=== PATIENT | male | born 1995 | race African-American/Black ===

== ENCOUNTER 2016-10-16 14:04 | Emergency (ER) | payer MEDICAID ==
[~2016-10-16] VITALS: Ht 170.2 cm; Wt 80.0 kg
[2016-10-16 14:06] VITALS: BP 135/63; PULSE 77; RESP 20; TEMP 98.6; O2SAT 98
--- NOTE | 2016-10-16 14:12 | PD ---
Physical Exam Date Seen by Provider: October 16, 2016 Time Seen by Provider: 14:10 Narrative 21 year old male presents to the emergency department for evaluation of right ankle injury. He fell, twisting his right ankle last night playing football. He has worse pain today. Patient is ambulatory in triage. Vital signs reviewed. Patient awaiting bed placement. Data Data Last Documented VS Vital Signs Date Time Temp Pulse Resp B/P Pulse Ox O2 Delivery O2 Flow Rate FiO2 10/16/16 14:06 98.6 77 20 135/63 98 Room Air [facility] Supervised Visit with YAQUELIN: Deirdre Waggoner October 16, 2016 14:11
--- NOTE | 2016-10-16 14:35 | PD ---
HPI Chief Complaint: Injury Time Seen by Provider: 14:35 Travel History International Travel<30 days: No Contact w/Intl Traveler<30days: No Traveled to known affect area: No History of Present Illness HPI 21-year-old male presents to emergency department complaining of right ankle pain since last night after rolling his ankle while playing football. Denies paresthesias, loss of sensation to the affected extremity. Has been ambulatory in the affected extremity. Has not taken any medications or tried any treatments relieve the symptoms. No known allergies. Has no other medical complaints. No other modifying factors or associated signs and symptoms. PFSH Social History Tobacco Use: No Allergies-Medications (Allergen,Severity, Reaction): Coded Allergies: No Known Allergies (Unverified , 10/16/16) Reported Meds & Prescriptions Reported Meds & Active Scripts Active Ibuprofen 800 Mg Tab 800 Mg PO Q6HR PRN Review of Systems Except as stated in HPI: all other systems reviewed are Neg Physical Exam Narrative GENERAL: Well-nourished, well-developed male patient, in no acute distress SKIN: Warm and dry. HEAD: Atraumatic. Normocephalic. EYES: Pupils equal and round. No scleral icterus. No injection or drainage. ENT: Mucosa pink and moist. Airway patent. NECK: Trachea midline. CARDIOVASCULAR: Regular rate. RESPIRATORY: No accessory muscle use. GASTROINTESTINAL: Flat. MUSCULOSKELETAL: Right ankle is mildly edematous without erythema or ecchymosis ; no obvious deformity; with point tenderness on palpation to the lateral malleolar zone and mid foot zone. No obvious deformities. No clubbing. No cyanosis. No edema. NEUROLOGICAL: Awake and alert. Oriented 3. No obvious cranial nerve deficits. Motor grossly within normal limits. Normal speech. PSYCHIATRIC: Appropriate mood and affect; insight and judgment normal. Data Data Last Documented VS Vital Signs Date Time Temp Pulse Resp B/P Pulse Ox O2 Delivery O2 Flow Rate FiO2 10/16/16 14:06 98.6 77 20 135/63 98 Room Air Orders Ankle, Complete ([id number]) (10/16/16 14:33) Ice/Cold Pack (10/16/16 14:33) Ibuprofen (Motrin) (10/16/16 14:45) MDM Medical Decision Making Medical Screen Exam Complete: Yes Emergency Medical Condition: Yes Medical Record Reviewed: Yes Differential Diagnosis Ankle sprain, ankle fracture, ankle dislocation Narrative Course 21-year-old male with right ankle injury. Ibuprofen administered in the ER. Ice pack applied. Right ankle x-ray ordered. 1520: Right ankle x-ray with no acute findings. Javed bandage, ankle stirrup splint and crutches provided for support. Ibuprofen prescribed for home. Patient verbalizes understanding and agreement with treatment plan. Patient is medically cleared and stable for discharge. Discussed reasons to return to the emergency department. Instructed patient to follow up with primary care provider. Patient agrees with treatment plan. The patients vital signs are stable and the patient is stable for outpatient follow-up and treatment. Patient discharged home, stable and in no acute distress. Diagnosis Primary Impression: Right ankle sprain Qualified Code: S93.401A - Sprain of right ankle, unspecified ligament, initial encounter Referrals: Primary Care Physician Patient Instructions: Ankle Sprain (ED), Ankle Sprain Exercises (GEN), Ankle Stirrup Splint (ED), Crutch Instructions (ED), General Instructions Departure Forms: Tests/Procedures, Work Release Enter return to work date: October 21, 2016 Additional Instructions: Tylenol and ibuprofen as directed nausea for pain and inflammation Rest, ice, compress, and elevate extremity to decrease pain and inflammation Ankle Brace for support Crutches for support Avoid aggravating activity; increase activity as tolerated Follow-up with primary care provider Return to the emergency department immediately with worsening symptom Med/Other Pt SpecificInfo: Prescription(s) given Scripts Ibuprofen 800 Mg [id number] Mg PO Q6HR PRN (PAIN) #30 TAB Ref 0 Prov:Patricia Modi 10/16/16 Disposition: 01 DISCHARGE HOME Condition: Stable Patricia Modi October 16, 2016 14:35
[2016-10-16] MEDS ORDERED: IBUPROFEN 800 MG TAB PO ONE (14:45)
[2016-10-16] MEDS ORDERED: IBUP800T23 PO (15:06)
--- NOTE | 2016-10-16 15:14 | RADRPT ---
EXAM DATE/TIME: 10/16/2016 15:11 [place] COMPARISON: No previous studies available for comparison. INDICATIONS : Right ankle pain post football injury yesterday. MEDICAL HISTORY : None. SURGICAL HISTORY : None. ENCOUNTER: Initial ACUITY: 2 days PAIN SCORE: 8/10 LOCATION: Right anterior ankle FINDINGS: Three view exam was performed of the right ankle. The bony structures are in normal alignment. No e vidence of fracture, dislocation, or soft tissue swelling. The ankle mortise is intact. No radiopaq ue foreign bodies are seen. Bony mineralization is normal. CONCLUSION: No acute fracture. Iron Vizcaino MD on October 16, 2016 at 15:12 Board Certified Radiologist. This report was verified electronically.
== END 2016-10-16 15:39 | disposition home or self-care (01) ==
LOC: NEPK 14:04
DX: S93.401A Sprain of unspecified ligament of right ankle, initial encounter (principal); X50.9XXA Other and unspecified overexertion or strenuous movements or postures, initial encounter; Y93.61 Activity, american tackle football
CPT/HCPCS: 73610; 99283; E0113; L1906

== ENCOUNTER 2017-05-31 08:37 | Emergency (ER) | payer MEDICAID ==
[~2017-05-31 08:37] MED LIST: ZOFR4TAB3 SL
[2017-05-31 08:39] VITALS: BP 142/93; PULSE 69; RESP 16; TEMP 97.8; O2SAT 98
--- NOTE | 2017-05-31 08:55 | PD ---
HPI Chief Complaint: ENT Complaint Time Seen by Provider: 08:43 Travel History International Travel<30 days: No Contact w/Intl Traveler<30days: No Traveled to known affect area: No History of Present Illness HPI 22 y male presents to emergency department complaining of left jaw and ear pain for 1.5 months. Patient states that he woke up with the pain 1.5 months ago and is worsening. Says that at onset, pain came on suddenly lasted for a few seconds to a minute and then went away. States now that the pain is more constant and is becoming severe. Denies inciting events or trauma. Tylenol reduces the pain slightly. Pt points to the TMJ and says the pain radiates to the left ear. Pain does not increase with eating or moving her jaw. Patient denies clicking or popping of the jaw. Patient has not seen a primary care physician or been evaluated for this condition. Denies fever or chills. Denies cough or cold-like symptoms. Denies chest pain shortness of breath or abdominal pain. PFSH Past Medical History Gastrointestinal Disorders: Yes (ACID REFLUX) Social History Alcohol Use: No Tobacco Use: No Substance Use: No Allergies-Medications (Allergen,Severity, Reaction): Coded Allergies: No Known Allergies (Unverified , 04/07/17) Reported Meds & Prescriptions Reported Meds & Active Scripts Active Carbamazepine 200 Mg Tab 200 Mg PO BID 5 Days Zofran Odt (Ondansetron Odt) 4 Mg Tab 4 Mg SL Q6HR PRN Review of Systems Except as stated in HPI: all other systems reviewed are Neg Physical Exam Narrative GENERAL: Well-developed nourished in moderate distress SKIN: Focused skin assessment warm/dry. HEAD: Atraumatic. Normocephalic. EYES: Pupils equal and round. No scleral icterus. No injection or drainage. ENT: No nasal bleeding or discharge. Mucous membranes pink and moist. Tympanic membranes not injected, nonbulging, intact. NECK: Trachea midline. No JVD. Mild tenderness palpation of the TMJ. No clicking or popping at the joints Gingiva appear nonfriable non-erythematous about fluctuance. CARDIOVASCULAR: Regular rate and rhythm. No murmur appreciated. RESPIRATORY: No accessory muscle use. Clear to auscultation. Breath sounds equal bilaterally. MUSCULOSKELETAL: No obvious deformities. No clubbing. No cyanosis. No edema. NEUROLOGICAL: Awake and alert. No obvious cranial nerve deficits. Motor grossly within normal limits. Normal speech. PSYCHIATRIC: Appropriate mood and affect; insight and judgment normal. Data Data Last Documented VS Vital Signs Date Time Temp Pulse Resp B/P (MAP) Pulse Ox O2 Delivery O2 Flow Rate FiO2 05/31/17 09:23 16 05/31/17 09:23 05/31/17 08:39 97.8 69 98 Orders Orders Carbamazepine (Tegretol) (05/31/17 09:00) [facility] Medical Decision Making Medical Screen Exam Complete: Yes Emergency Medical Condition: Yes Differential Diagnosis Trigeminal neuralgia, TMJ, otitis media Narrative Course 22 y male presents to emergency department complaining of left jaw and ear pain for 1.5 months. Patient states that he woke up with the pain 1.5 months ago and is worsening. Says that at onset, pain came on suddenly lasted for a few seconds to a minute and then went away. States now that the pain is more constant and is becoming severe. Denies inciting events or trauma. Tylenol reduces the pain slightly. Pt points to the TMJ and says the pain radiates to the left ear. Pain does not increase with eating or moving her jaw. Patient denies clicking or popping of the jaw. Patient has not seen a primary care physician or been evaluated for this condition. Denies fever or chills. Denies cough or cold-like symptoms. Denies chest pain shortness of breath or abdominal pain. Vital signs stable. Physical exam demonstrates an anxious, 22y male. Findings consistent with TMJ versus trigeminal neuralgia. Patient will be given carbamazepine for his symptoms. Advised to use caution as this medication may make him feel drowsy. I explained the usual course and cause of this issue. Patient and mother was reassured. Advised to follow-up with primary care physician for evaluation. [employer] information given. Advised to return to the emergency department for worsening or persistent symptoms. Diagnosis Primary Impression: Trigeminal neuralgia Referrals: [facility] Patient Instructions: General Instructions, Trigeminal Neuralgia (ED) Additional Instructions: Follow up with your primary care physician within 2-3 days. If your symptoms persist or worsen, return to the emergency department. Use extreme caution when taking these medications as them and make you feel drowsy. Take only as prescribed and as needed. He may continue to use Tylenol or Motrin per package instructions for your pain. Scripts Carbamazepine (Carbamazepine) 200 Mg Tab 200 MG PO BID for 5 Days, #10 TAB 0 Refills Prov: Dustin Tay MD 05/31/17 Disposition: 01 DISCHARGE HOME Condition: Stable Carol Ann Lanza May 31, 2017 08:55
[2017-05-31] MEDS ORDERED: CARB200T PO (08:57)
[2017-05-31] MEDS ORDERED: carBAMazepine 200 MG TAB PO ONE (09:00)
== END 2017-05-31 09:19 | disposition home or self-care (01) ==
LOC: NEPD 08:37
DX: G50.0 Trigeminal neuralgia (principal); K21.9 Gastro-esophageal reflux disease without esophagitis
CPT/HCPCS: 99283

== ENCOUNTER 2017-06-15 04:05 | Emergency (ER) | payer MEDICAID ==
[~2017-06-15] VITALS: Ht 172.7 cm; Wt 95.0 kg
[~2017-06-15 04:05] MED LIST changes: +CARB200T PO
[2017-06-15 04:09] VITALS: BP 145/92; PULSE 62; RESP 16; TEMP 97.8; O2SAT 99
--- NOTE | 2017-06-15 04:27 | PD ---
HPI Chief Complaint: ENT Complaint Time Seen by Provider: 04:20 Travel History International Travel<30 days: No Contact w/Intl Traveler<30days: No Traveled to known affect area: No History of Present Illness HPI 22-year-old male with history of trigeminal neuralgia presents to emergency department for evaluation of left-sided facial and ear pain. This began acutely while he was sleeping. . Nature. It is throbbing. It woke him up. It starts near his transmandibular joint and radiates towards his ear. This is similar to his last exacerbation. Patient has not followed up for this. Denies any trauma. No fever or chills. No recent illnesses. He has no other symptoms to report. [facility] Past Medical History Medical History: Denies Significant Hx Gastrointestinal Disorders: Yes (ACID REFLUX) Past Surgical History Surgical History: No Previous Surgery Social History Alcohol Use: No Tobacco Use: No Substance Use: No Allergies-Medications (Allergen,Severity, Reaction): Coded Allergies: No Known Allergies (Unverified Adverse Reaction, Unknown, 06/15/17) Reported Meds & Prescriptions Reported Meds & Active Scripts Active No Active Prescriptions or Reported Medications Review of Systems Except as stated in HPI: all other systems reviewed are Neg Physical Exam Narrative GENERAL: Well-nourished, well-developed patient in no acute distress SKIN: Focused skin assessment warm/dry. HEAD: Normocephalic. No mastoid tenderness EARS: Bilateral pinnae and external canals appear within normal limits. Bilateral tympanic membranes without erythema, dullness or perforation. EYES: No scleral icterus. No injection or drainage. DENTAL: No loose or chipped teeth. No malocclusion. ENT: Mucosa pink and moist. No erythema or exudates. No uvular edema. No uvular , palatal, or tonsillar deviation. Airway patent. Nasal turbinates appear normal without nasal blood, purulent drainage or septal hematoma. NECK: Supple, trachea midline. No JVD or lymphadenopathy. CARDIOVASCULAR: Regular rate and rhythm without murmurs, gallops, or rubs. RESPIRATORY: Breath sounds equal bilaterally. No accessory muscle use. Data Data Last Documented VS Vital Signs Date Time Temp Pulse Resp B/P (MAP) Pulse Ox O2 Delivery O2 Flow Rate FiO2 06/15/17 04:09 97.8 62 16 145/92 (109) 99 Room Air Orders Orders Dexamethasone Inj (Decadron Inj) (06/15/17 04:30) Ed Discharge Order (06/15/17 04:26) [facility] Medical Decision Making Medical Screen Exam Complete: Yes Emergency Medical Condition: Yes Medical Record Reviewed: Yes Differential Diagnosis Trigeminal neuralgia versus herpetic pre-drome versus otitis media Narrative Course 22-year-old male presents to emergency department for evaluation of left sided face and ear pain. Physical exam and history are consistent with a trigeminal neuralgia exacerbation. Patient is encouraged to follow-up with the primary care provider. I have counseled him on care. He agrees to return immediately with any acute worsening of symptoms. Diagnosis Primary Impression: Trigeminal neuralgia of left side of face Referrals: [facility] Patient Instructions: General Instructions, Trigeminal Neuralgia (ED) Departure Forms: Tests/Procedures, Work Release Enter return to work date: Jun 17, 2017 Additional Instructions: Follow-up with a primary care provider Seek neurology evaluation of symptoms persist Return immediately with any acute worsening symptoms Med/Other Pt SpecificInfo: No Change to Meds Scripts No Active Prescriptions or Reported Meds Disposition: 01 DISCHARGE HOME Condition: Stable Kelly Dow Jun 15, 2017 04:27
[2017-06-15] MEDS ORDERED: DEXAMETHASONE SOD PHOS 4 MG/ML VIAL IM ONE (04:30)
== END 2017-06-15 04:44 | disposition home or self-care (01) ==
LOC: NEPD 04:05
DX: G50.0 Trigeminal neuralgia (principal); K21.9 Gastro-esophageal reflux disease without esophagitis
CPT/HCPCS: 96372; 99284; J1100

== ENCOUNTER 2017-12-01 13:18 | Emergency (ER) | payer SELFPAY ==
[~2017-12-01] VITALS: Ht 172.7 cm; Wt 100.0 kg
[2017-12-01 13:23] VITALS: BP 142/84; PULSE 72; RESP 18; TEMP 98.4; O2SAT 99
--- NOTE | 2017-12-01 13:48 | PD ---
HPI Chief Complaint: ENT Complaint Time Seen by Provider: 13:36 Travel History International Travel<30 days: No Contact w/Intl Traveler<30days: No Traveled to known affect area: No History of Present Illness HPI 22-year-old male who has history of trigeminal neuralgia presents emergency department requesting pain medication for her left ear pain associated with it. Patient states this has been intermittently occurring for 2 months. He was diagnosed and has not followed up. He is requesting something stronger than ibuprofen here in the emergency department. He has no fever or chills. No trauma. No drainage. No changes in his gait. He has no other symptoms to report. History Past Medical Histgory Medical History: Denies Significant Hx Social History Alcohol Use: No Tobacco Use: No Allergies-Medications (Allergen,Severity, Reaction): Coded Allergies: No Known Allergies (Unverified Adverse Reaction, Unknown, 12/01/17) Reported Meds & Prescriptions Reported Meds & Active Scripts Active No Active Prescriptions or Reported Medications Review of Systems Except as stated in HPI: all other systems reviewed are Neg Physical Exam Narrative GENERAL: Well-nourished, well-developed male patient ambulatory no acute distress SKIN: Focused skin assessment warm/dry. HEAD: Normocephalic. No mastoid tenderness EARS: Bilateral pinnae and external canals appear within normal limits. Bilateral tympanic membranes without erythema, dullness or perforation. EYES: No scleral icterus. No injection or drainage. ENT: Mucosa pink and moist. No erythema or exudates. No uvular edema. No uvular , palatal, or tonsillar deviation. Airway patent. Nasal turbinates appear normal without nasal blood, purulent drainage or septal hematoma. NECK: Supple, trachea midline. No JVD or lymphadenopathy. CARDIOVASCULAR: Regular rate and rhythm without murmurs, gallops, or rubs. RESPIRATORY: Breath sounds equal bilaterally. No accessory muscle use. Data Data Last Documented VS Vital Signs Date Time Temp Pulse Resp B/P (MAP) Pulse Ox O2 Delivery O2 Flow Rate FiO2 12/01/17 13:23 98.4 72 18 142/84 (103) 99 MDM Medical Screen Exam Complete: Yes Emergency Medical Condition: No Differential Diagnosis Trigeminal neuralgia Narrative Course 22-year-old male presents emergency department requesting stronger pain medication for left ear pain associated with his trigeminal neuralgia. Ear exam is completely benign. Patient appears well. His vital signs are stable. I explained that I would not be giving anything stronger than ibuprofen and it was important that he followed up outpatient to be started on the appropriate pain control regimen. At this time there are no urgent or emergent needs medical intervention identified. A medical screening exam was performed: At the time of evaluation the presenting medical condition was determined not to be of an emergent nature. The patient was given the option of receiving additional care, but declined. Patient was given options for additional community resources from which to obtain care. The Patient Has Been advised to seek medical attention for their presenting complaint. The patient has been advised to return to the ER at any time if an emergent condition develops. Primary Impression: Encounter for medical screening examination Scripts No Active Prescriptions or Reported Meds Condition: Stable Kelly Dow Dec 01, 2017 13:48
== END 2017-12-01 13:49 | disposition left against medical advice (07) ==
LOC: NEPK 13:18
DX: G50.0 Trigeminal neuralgia (principal)
CPT/HCPCS: 99281